=== PATIENT | female | born 1940 | race Caucasian/White ===

== ENCOUNTER 2019-11-20 12:11 | Emergency (ER) | payer OTHER ==
[2019-11-20] MEDS ORDERED: ACETAMINOPHEN 500 MG TABLET (FP) PO ONE (12:29)
--- NOTE | 2019-11-20 12:29 | PDOC ---
Rapid Medical Evaluation Medical Evaluation: Allergies Allergy/AdvReac Type Severity Reaction Status Date / Time No Known Allergies Allergy Verified 11/20/19 12:25 11/20/19 12:27 CC: right hand/wrist pain s/p fall. RHD. PE: swelling to dorsum of right hand with ecchymosis over 3rd and 4th MCP Orders: xray, Tylenol Patient will proceed to the ED for further evaluation. Discharge Disposition - Diagnosis Hand pain - Referrals - Patient Instructions - Post Discharge Activity
[2019-11-20 12:33] VITALS: BP 161/85; PULSE 67; TEMP 97; BMI 35.3
[2019-11-20] MEDS ORDERED: ACETAMINOPHEN 500 MG TABLET (FP) ONE (12:59)
--- NOTE | 2019-11-20 13:20 | PDOC ---
History of Present Illness - General Chief Complaint: Injury Stated Complaint: FALL Time Seen by Provider: 11/20/19 12:35 - History of Present Illness Initial Comments: 11/20/19 13:20 78-year-old female presents for evaluation of right fourth finger and hand pain. Patient states she was walking up a flight of steps lost her footing twisted her right fourth finger as she grabbed to hold herself from falling. This occurred last night. She did not fall or hit her head Past History - Past Medical History Allergies/Adverse Reactions: Allergies Allergy/AdvReac Type Severity Reaction Status Date / Time No Known Allergies Allergy Verified 11/20/19 12:25 COPD: No DVT: Yes HTN: Yes Hypercholesterolemia: Yes - Surgical History GI Surgery: Yes (a/p) - Psycho Social/Smoking Cessation Hx Smoking History: Never smoked Hx Alcohol Use: No Drug/Substance Use Hx: No Review of Systems - Review of Systems Musculoskeletal: Yes: Joint Pain *Physical Exam - Vital Signs Last Vital Signs Temp Pulse Resp BP Pulse Ox 97 F L 67 20 161/85 95 11/20/19 12:25 11/20/19 12:25 11/20/19 12:25 11/20/19 12:25 11/20/19 12:25 - Physical Exam 11/20/19 13:20 Right hand fourth finger skin color and temperature normal. There is mild dorsal swelling. Decreased range of motion of the fourth finger. FDS and FDP work independently. Mild tenderness over the PIPJ on the radial aspect and mild tenderness over the shaft of the fourth finger of the proximal phalanx. Mild tenderness over the MCP J of the fourth finger. No gross sensorimotor deficits neurovascular intact decreased range of motion at terminal flexion of the DIPJ and PIPJ of the fourth finger. ED Treatment Course - Medications Given in the ED: ED Medications Discontinued Medications Generic Name Dose Route Start Last Admin Trade Name Freq PRN Reason Stop Dose Admin Acetaminophen 1,000 mg 11/20/19 12:29 11/20/19 13:00 Tylenol - PO 11/20/19 12:30 1,000 mg ONCE ONE Administration Medical Decision Making - Medical Decision Making 11/20/19 13:19 The patient's majority of tenderness is at the proximal phalanx as well as the MCP J of the fourth finger. Minimal tenderness at the radial aspect of the PIPJ. The fingers were deborah taped neurovascular intact post deborah taping follow-up with Ortho hand x-rays show no acute fracture however there is a radiolucency in the shaft of the proximal phalanx of the fourth finger as well as a questionable avulsion fracture of the middle phalanx on the radial aspect of the fourth finger at the PIPJ Discharge - Discharge Information Problems reviewed: Yes Clinical Impression/Diagnosis: Hand pain, Finger fracture Condition: Stable Disposition: HOME - Admission No - Follow up/Referral Referrals: Zeeshan Harper MD [Staff Physician] - - Patient Discharge Instructions Additional Instructions: Please keep the fingers deborah taped for comfort. Encourage elevation to decrease swelling. Return to the emergency room for worsening symptoms and without fail follow-up with orthopedic hand surgery in 2 to 3 days for further evaluation and treatment options. Tylenol as directed for pain. - Post Discharge Activity
== END 2019-11-20 14:08 | disposition home or self-care (01) ==
LOC: JERFT 12:11
DX: S62.604A Fracture of unspecified phalanx of right ring finger, initial encounter for closed fracture (principal); X58.XXXA Exposure to other specified factors, initial encounter; Y93.89 Activity, other specified; Y92.89 Other specified places as the place of occurrence of the external cause; Z86.718 Personal history of other venous thrombosis and embolism; I10 Essential (primary) hypertension; E78.00 Pure hypercholesterolemia, unspecified
CPT/HCPCS: 73130-TC-RT-FY; 99281-25

== ENCOUNTER 2020-12-11 16:42 | Emergency (ER) | payer OTHER ==
[2020-12-11 17:01] VITALS: BMI 23.4
[2020-12-11] MEDS ORDERED: BAMLANIVIMAB 700 MG in SODIUM CHLORIDE 250 ML IVPB ONE (17:04)
[2020-12-11 17:46] LABS: HEMOGLOBIN 13.2 GM/dL (10.7-15.3); MCH 32.2 pg (25.7-33.7); MCHC 33.8 g/dl (32.0-36.0); MEAN CELL VOLUME 95.2 fl (80-96); MEAN PLT VOLUME 8.7 fl (7.5-11.1); PLATELET COUNT 240 K/MM3 (134-434); RDW 13.9 % (11.6-15.6); WHITE BLOOD COUNT 4.2 K/mm3 (4.0-10.0)
[2020-12-11 17:53] LABS: POTASSIUM 3.6 mmol/L (3.5-5.1)
[2020-12-11 17:54] LABS: CALCIUM 8.8 mg/dL (8.5-10.1)
[2020-12-11 17:58] LABS: CREATININE 0.8 mg/dL (0.55-1.3)
[2020-12-11 23:20] VITALS: BP 130/86; PULSE 90; TEMP 98.9
== END 2020-12-11 23:20 | disposition home or self-care (01) ==
LOC: JCOVINFU 16:42
DX: U07.1 COVID-19 (principal)
CPT/HCPCS: 36415; 80048; 85027; 99284-25; M0239; Q0239

== ENCOUNTER 2023-06-09 12:54 | Inpatient (IN) | payer OTHER ==
[2023-06-09] MEDS ORDERED: dilTIAZem HCL 50 MG/10 ML - 10 ML VIAL IVPUSH ONE ×2 (14:21→16:45)
[2023-06-09 14:41] LABS: PH,URINE 6.5 (5.0-8.0); URINE APPEARANCE CLEAR; URINE BILIRUBIN NEGATIVE (NEGATIVE); URINE COLOR YELLOW; URINE GLUCOSE (UA) NEGATIVE (NEGATIVE); URINE KETONE NEGATIVE (NEGATIVE); URINE LEUK ESTERASE NEGATIVE (NEGATIVE); URINE NITRITE NEGATIVE (NEGATIVE); URINE PROTEIN NEGATIVE (NEGATIVE); URINE UROBILINOGEN 0.2 mg/dL (0.2-1.0)
[2023-06-09 14:42] LABS: INR 1.02 (0.83-1.09); PROTHROMBIN TIME (PATIENT) 11.8 SEC (9.7-13.0)
[2023-06-09 14:46] LABS: BASO % 0.4 % (0-2.0); EOS % 2.9 % (0-4.5); HEMATOCRIT 43.1 % (32.4-45.2); HEMOGLOBIN 14.1 GM/dL (10.7-15.3); LYMPH % 30.2 % (8-40); MCH 30.6 pg (25.7-33.7); MCHC 32.6 g/dl (32.0-36.0); MEAN CELL VOLUME 93.8 fl (80-96); MEAN PLT VOLUME 8.8 fl (7.5-11.1); MONO % 8.6 % (3.8-10.2); NEUT % 57.9 % (42.8-82.8); PLATELET COUNT 271 10^3/uL (134-434); RDW 13.3 % (11.6-15.6); WHITE BLOOD COUNT 7.1 K/mm3 (4.0-10.0)
[2023-06-09 14:56] LABS: POTASSIUM 3.7 mmol/L (3.5-5.1)
[2023-06-09 14:58] LABS: ALBUMIN 3.4 g/dl (3.4-5.0); BLOOD UREA NITROGEN 23.4 mg/dL (7-18)
[2023-06-09 15:01] LABS: CREATININE 0.7 mg/dL (0.55-1.3)
[2023-06-09 15:03] LABS: BILIRUBIN,TOTAL 0.4 mg/dL (0.2-1); TOT PROT 7.4 g/dl (6.4-8.2)
[2023-06-09] MEDS ORDERED: dilTIAZem HCL 125 MG/25 ML - 25 ML VIAL ONE ×2 (15:05→17:02)
[2023-06-09] MEDS ORDERED: dilTIAZem HCL 30 MG TABLET PO ONE (16:45)
[2023-06-09] MEDS ORDERED: dilTIAZem HCL 30 MG TABLET ONE (17:01)
[2023-06-09] MEDS: APIXABAN 5 MG TABLET PO SCH (21:29)
[2023-06-09] MEDS: ATORVASTATIN CA 40 MG TABLET (FP) PO SCH (21:29)
[2023-06-09] MEDS: PANTOPRAZOLE 40 MG TABLET PO SCH (21:30)
[2023-06-09] MEDS: INSULIN SLIDING SCALE (NOVOLOG) 1 VIAL SQ SCH (22:04)
[2023-06-10] MEDS ORDERED: METOPROLOL TARTRATE 25 MG TABLET (FP) PO SCH
[2023-06-10] MEDS: METOPROLOL TARTRATE 25 MG TABLET (FP) PO SCH ×2 (00:02→05:44)
[2023-06-10 00:51] VITALS: BMI 38.6
[2023-06-10] MEDS: INSULIN SLIDING SCALE (NOVOLOG) 1 VIAL SQ SCH ×3 (06:19→18:00)
[2023-06-10 08:08] LABS: BASO % 0.4 % (0-2.0); EOS % 4.4 % (0-4.5); HEMATOCRIT 42.6 % (32.4-45.2); HEMOGLOBIN 14.6 GM/dL (10.7-15.3); MCH 31.4 pg (25.7-33.7); MCHC 34.4 g/dl (32.0-36.0); MEAN CELL VOLUME 91.5 fl (80-96); MEAN PLT VOLUME 8.5 fl (7.5-11.1); MONO % 9.8 % (3.8-10.2); NEUT % 48.4 % (42.8-82.8); PLATELET COUNT 294 10^3/uL (134-434); RBC 4.65 M/mm3 (3.60-5.2); RDW 13.3 % (11.6-15.6); WHITE BLOOD COUNT 6.2 K/mm3 (4.0-10.0)
[2023-06-10 08:35] LABS: CALCIUM 9.1 mg/dL (8.5-10.1); CREATININE 0.8 mg/dL (0.55-1.3); MAGNESIUM 2.1 mg/dL (1.8-2.4)
[2023-06-10 08:41] LABS: ALBUMIN 3.3 g/dl (3.4-5.0); BLOOD UREA NITROGEN 24.3 mg/dL (7-18)
[2023-06-10 08:43] LABS: PHOSPHOROUS 4.2 mg/dL (2.5-4.9)
[2023-06-10 08:44] LABS: BILIRUBIN,TOTAL 0.8 mg/dL (0.2-1)
[2023-06-10] MEDS: APIXABAN 5 MG TABLET PO SCH ×2 (09:41→21:55)
[2023-06-10] MEDS: PANTOPRAZOLE 40 MG TABLET PO SCH (09:41)
[2023-06-10] MEDS ORDERED: metoPROLOL SUCCINATE 25 MG TAB.SR.24H (FP) PO SCH (10:00)
[2023-06-10] MEDS ORDERED: ASPIRIN COATED 81 MG TABLET.EC PO SCH (10:00)
[2023-06-10] MEDS: ATORVASTATIN CA 40 MG TABLET (FP) PO SCH (21:55)
[2023-06-10] MEDS: metoPROLOL SUCCINATE 25 MG TAB.SR.24H (FP) PO SCH (21:55)
[2023-06-11] MEDS: INSULIN SLIDING SCALE (NOVOLOG) 1 VIAL SQ SCH ×2 (06:12→11:46)
[2023-06-11] MEDS: APIXABAN 5 MG TABLET PO SCH ×2 (09:05→21:47)
[2023-06-11] MEDS: metoPROLOL SUCCINATE 25 MG TAB.SR.24H (FP) PO SCH (09:05)
[2023-06-11] MEDS: PANTOPRAZOLE 40 MG TABLET PO SCH (09:05)
[2023-06-11] MEDS: ATORVASTATIN CA 40 MG TABLET (FP) PO SCH (21:45)
[2023-06-12 07:42] LABS: HEMOGLOBIN 14.4 GM/dL (10.7-15.3); MCH 31.4 pg (25.7-33.7); MCHC 34.1 g/dl (32.0-36.0); MEAN CELL VOLUME 91.9 fl (80-96); MEAN PLT VOLUME 8.9 fl (7.5-11.1); PLATELET COUNT 308 10^3/uL (134-434); RBC 4.58 M/mm3 (3.60-5.2); RDW 13.4 % (11.6-15.6); WHITE BLOOD COUNT 7.6 K/mm3 (4.0-10.0)
[2023-06-12 07:58] LABS: POTASSIUM 4.5 mmol/L (3.5-5.1)
[2023-06-12 08:03] LABS: CALCIUM 8.7 mg/dL (8.5-10.1)
[2023-06-12 08:04] LABS: BLOOD UREA NITROGEN 26.7 mg/dL (7-18); MAGNESIUM 2.4 mg/dL (1.8-2.4)
[2023-06-12 08:07] LABS: PHOSPHOROUS 3.4 mg/dL (2.5-4.9)
[2023-06-12] MEDS: PANTOPRAZOLE 40 MG TABLET PO SCH (10:46)
[2023-06-12] MEDS: APIXABAN 5 MG TABLET PO SCH (10:46)
[2023-06-12] MEDS ORDERED: metoPROLOL SUCCINATE 25 MG TAB.SR.24H (FP) PO SCH (14:35)
[2023-06-12 15:08] VITALS: BP 148/55; PULSE 52; RESP 19; TEMP 96
== END 2023-06-12 16:40 | disposition home or self-care (01) | DRG 201 ==
LOC: JER 12:54 → JERBED 16:29 → J4W 20:07
PROVIDERS: ADMIT Internal Medicine; ATTEND Internal Medicine
DX: I48.91 Unspecified atrial fibrillation (principal); E78.5 Hyperlipidemia, unspecified; I10 Essential (primary) hypertension; R73.03 Prediabetes; R07.89 Other chest pain; E66.9 Obesity, unspecified; Z68.38 Body mass index [BMI] 38.0-38.9, adult; R94.31 Abnormal electrocardiogram [ECG] [EKG]
CPT/HCPCS: 36415; 71045-TC-FY; 80048; 80053; 80061; 81003; 82550; 82553; 82962; 83036; 83735; 84100; 84443; 84484; 85025; 85027; 85610; 86850; 86900; 86901; 93005; 93010; 93306-TC; 99291